=== PATIENT | female | born 1950 | race Caucasian/White ===

== ENCOUNTER 2017-10-25 18:18 | Emergency (ER) | payer OTHER, MEDICAID ==
[2017-10-26 00:11] VITALS: BP 190/88
== END 2017-10-26 00:01 | disposition home or self-care (01) ==
LOC: ED 18:18
DX: J06.9 Acute upper respiratory infection, unspecified (principal); J02.9 Acute pharyngitis, unspecified; I10 Essential (primary) hypertension; Z88.0 Allergy status to penicillin; H92.01 Otalgia, right ear